=== PATIENT | female | born 1995 | race Caucasian/White ===

== ENCOUNTER 2025-04-09 00:30 | Emergency (ER) | payer OTHER, SELFPAY ==
[2025-04-09 00:34] VITALS: BP 146/100
[2025-04-09 01:33] VITALS: BP 104/65
[2025-04-09 01:36] VITALS: BMI 46.6
--- NOTE | 2025-04-09 01:58 | ED.GENMED ---
History of Present Illness
<Anjelica Forbes MD - Last Filed: 04/09/25 02:01>
General
Chief Complaint: Female [employer]/Gu symptoms
Source: patient and spouse
Time Seen by Provider: 04/09/25 01:46
History of Present Illness
History of Present Illness:
This patient is a 29-year-old female who says that about 2 days ago she got a gradual onset of intermittent 'stabbing' pain in the right lower quadrant that then started to radiate around to her back. Gradually, the pain then became constant and is
now associated with nausea and nonbloody vomiting. She denies fever, chills, diarrhea, chest pain, shortness of breath. She does note for the last 4 to 5 days that she has had dysuria urgency and frequency without associated hematuria. She
started menstruating on and states that it was about a week to week and a half earlier than expected although her periods are generally irregular given her history of PCOS. Then, tonight, the pain got particularly worse and now radiates to
the suprapubic and left lower quadrant area. There are no exacerbating relieving factors.
Past History
<Anjelica Forbes MD - Last Filed: 04/09/25 02:01>
Past History
ED Past Medical History: Other ( PCOS)
Social History
Tobacco: Non-smoker
Alcohol: None
Drug: None
Personal:
Living: with family
Phy Exam
<Anjelica Forbes MD - Last Filed: 04/09/25 02:01>
Physical Exam
Physical Exam:
GENERAL: Alert , appears uncomfortable
EYE: pupils equal and reactive
NECK: Supple, no significant adenopathy.
ENT: o/p clr, mmm.
CARDIAC: Regular rate and rhythm .
LUNGS: Clear breath sounds bilaterally, no acute respiratory distress, no wheezes/rales/rhonchi
ABDOMEN: Soft, tenderness noted in right lower quadrant, right upper quadrant, and less so in the left lower quadrant, no r/g, no cvat
NEUROLOGICAL: Alert and oriented, no focal neuro deficits
SKIN: Warm and dry, skin intact.
MUSCULOSKELETAL: No edema, well perfused.
PSYCH: Normal and appropriate interaction.
Course
<Anjelica Forbes MD - Last Filed: 04/09/25 02:01>
Orders/Labs/Results
Orders:
Orders
04/09/25 01:48
IV Insert/Care/Rem.- Treatment PRN
04/09/25 01:49
Test Result ONCE
04/09/25 01:51
Complete Blood Count/With Diff Urgent
Comprehensive Metabolic Panel Urgent
HCG, Serum Qualitative Screen Urgent
Comment: Notify provider if positive test present
Lipase Urgent
04/09/25 01:58
CT Abd/pel Without Iv Or Oral Urgent
Comment:
Reason For Exam: R sided pain
0.9% Sodium Chloride 1000 ml [Nss] 1,000 ml IV BOLUS
Ketorolac [Toradol] 15 mg IV NOW STA
04/09/25 02:21
Urinalysis Reflex To Culture Urgent
Date Specimen was Collected: 04/09/25
Time Specimen was Collected: 02:19
Urine Microscopic Reflex Cult Urgent
Urine Culture Urgent
SOC[place] Source: U
Specimen Description:
Date Specimen was Collected: 04/09/25
Time Specimen was Collected: 02:19
Abnormal Lab Results
04/09/25 04/09/25
01:51 02:21
WBC 12.6 H 10^3/uL
(4.8-10.8)
MPV 11.3 H fL
(7.4-10.4)
Absolute Neuts (auto) 7.4 H 10^3/uL
(1.4-6.5)
Absolute Lymphs (auto) 4.4 H 10^3/uL
(1.2-3.4)
Chloride 108 H mmol/L
(98-107)
Glucose 124 H mg/dl
(70-99)
ALT 52 H U/L
(0-35)
Ur Occult Blood Reflex 4+ A
(Negative)
Leukocyte Esterase Rfl 2+ A
(Negative)
Urine RBC >100 A /HPF
(0-2)
Urine Bacteria (Reflex) Few A
(Negative)
Urine Albumin (Reflex) 3+ A
(Neg - Trace)
04/09/25 01:51
04/09/25 01:51
Vital Signs
Initial and Last Documented VS:
Initial Vital Signs
Temp Pulse Resp BP Pulse Ox
98.1 F 110 26 146/100 99
04/09/25 00:34 04/09/25 00:34 04/09/25 00:34 04/09/25 00:34 04/09/25 00:34
Last Documented Vital Signs
Temp Pulse Resp BP Pulse Ox
98.1 F 80 18 122/65 99
04/09/25 00:34 04/09/25 04:00 04/09/25 04:00 04/09/25 04:00 04/09/25 04:00
<Landry Kulkarni, DO - Last Filed: 04/09/25 05:28>
Orders/Labs/Results
Orders:
Orders
04/09/25 01:48
IV Insert/Care/Rem.- Treatment PRN
04/09/25 01:49
Test Result ONCE
04/09/25 01:51
Complete Blood Count/With Diff Urgent
Comprehensive Metabolic Panel Urgent
HCG, Serum Qualitative Screen Urgent
Comment: Notify provider if positive test present
Lipase Urgent
04/09/25 01:58
CT Abd/pel Without Iv Or Oral Urgent
Comment:
Reason For Exam: R sided pain
0.9% Sodium Chloride 1000 ml [Nss] 1,000 ml IV BOLUS
Ketorolac [Toradol] 15 mg IV NOW STA
04/09/25 02:21
Urinalysis Reflex To Culture Urgent
Date Specimen was Collected: 04/09/25
Time Specimen was Collected: 02:19
Urine Microscopic Reflex Cult Urgent
Urine Culture Urgent
SOC[place] Source: U
Specimen Description:
Date Specimen was Collected: 04/09/25
Time Specimen was Collected: 02:19
Abnormal Lab Results
04/09/25 04/09/25
01:51 02:21
WBC 12.6 H 10^3/uL
(4.8-10.8)
MPV 11.3 H fL
(7.4-10.4)
Absolute Neuts (auto) 7.4 H 10^3/uL
(1.4-6.5)
Absolute Lymphs (auto) 4.4 H 10^3/uL
(1.2-3.4)
Chloride 108 H mmol/L
(98-107)
Glucose 124 H mg/dl
(70-99)
ALT 52 H U/L
(0-35)
Ur Occult Blood Reflex 4+ A
(Negative)
Leukocyte Esterase Rfl 2+ A
(Negative)
Urine RBC >100 A /HPF
(0-2)
Urine Bacteria (Reflex) Few A
(Negative)
Urine Albumin (Reflex) 3+ A
(Neg - Trace)
04/09/25 01:51
04/09/25 01:51
Vital Signs
Initial and Last Documented VS:
Initial Vital Signs
Temp Pulse Resp BP Pulse Ox
98.1 F 110 26 146/100 99
07/08/25 00:34 04/09/25 00:34 04/09/25 00:34 04/09/25 00:34 04/09/25 00:34
Last Documented Vital Signs
Temp Pulse Resp BP Pulse Ox
98.1 F 80 18 122/65 99
04/09/25 00:34 04/09/25 04:00 04/09/25 04:00 04/09/25 04:00 04/09/25 04:00
<Anjelica Forbes MD - Last Filed: 04/09/25 02:01>
*Pulse Oximetry
SaO2: 99
<Landry Kulkarni DO - Last Filed: 04/09/25 05:28>
*Pulse Oximetry
Patient hypoxic: no
*Critical Care Note
Total Time (30-74mins, 75-104mins- exclusive of procedures): Not Applicable
<Anjelica Forbes MD - Last Filed: 04/09/25 02:01>
Update Note
Update Note:
Patient presents to the Emergency Department with ___abdominal and back pain
Number and Complexity of Problems Addressed at the Encounter
� Chronic conditions affecting care:
� Acute Exacerbation and/or Progression of Chronic Illness:
� Differential Diagnosis includes: But not limited to kidney stone, appendicitis, cholecystitis, ovarian cyst rupture, etc. etc.
Amount and/or Complexity of Data to be Reviewed and Analyzed
� I performed an independent evaluation of and my interpretation is:
EKG:
CT:
Xrays:
Laboratory Studies:
Other:
� Review of other/old records reveals:
� Clinical information was obtained by an independent historian:
� Prescriptions/Medications Considered but not given:
� Further testing considered but not performed:
Risk of Complications and/or Morbidity or Mortality of Patient Management
� Social determinants of health affecting care:
� Discussion with other providers (PCP, Hospitalists, Consultants, etc):
� Escalation of care including admission/observation vs risk of discharge considered:
<Landry Kulkarni DO - Last Filed: 04/09/25 05:28>
Update Note
Update Note:
Patient presents to the Emergency Department with ___abdominal and back pain
Number and Complexity of Problems Addressed at the Encounter
� Chronic conditions affecting care:
� Acute Exacerbation and/or Progression of Chronic Illness:
� Differential Diagnosis includes: But not limited to kidney stone, appendicitis, cholecystitis, ovarian cyst rupture, etc. etc.
Amount and/or Complexity of Data to be Reviewed and Analyzed
� I performed an independent evaluation of and my interpretation is:
EKG:
CT:
Xrays:
Laboratory Studies:
Other:
� Review of other/old records reveals:
� Clinical information was obtained by an independent historian:
� Prescriptions/Medications Considered but not given:
� Further testing considered but not performed:
Risk of Complications and/or Morbidity or Mortality of Patient Management
� Social determinants of health affecting care:
� Discussion with other providers (PCP, Hospitalists, Consultants, etc):
� Escalation of care including admission/observation vs risk of discharge considered:
5:27 AM care of patient was initially transition pending CT abdomen/pelvis and urinalysis. Patient presents with right flank and right lower quadrant abdominal pain. CT negative for acute pathology. Urinalysis does show evidence of hematuria but
she is on her menstrual cycle. On my exam, patient is well-appearing and nontoxic. We discussed patient follow-up and return precautions
ED Attending Note
<Anjelica Forbes MD - Last Filed: 04/09/25 02:01>
-
Portions of this chart may have been created with voice recognition software.� Occasional wrong word or��sound alike� substitutions may have occurred due to the inherent limitations of voice recognition software.
Discharge Plan
Departure
Patient Disposition: Home (Routine Discharge)
Date of Disposition: 04/09/25
Time of Disposition: 05:28
Patient with high blood pressure during this ER visit?: No
Discharge Problem:
Abdominal pain
Instructions: Abdominal Pain
Prescriptions:
No Action
Unobtainable
0
Referrals:
Angeline Matamoros DO [Family Provider, Family Practice]
Activity Restrictions/Additional Instructions:
Please return for any worsening symptoms.
You may return at any time if you have further concerns.
Please follow up with your doctor at the first available appointment, preferably this week.
Thank you for choosing [facility].
Interventions
Interventions:
*Risk Screen - Suicide Last Done: 04/09/25 00:34
*General Assessment Last Done: 04/09/25 01:47
*Neglect/Abuse Screening Last Done: 04/09/25 00:34
*ED- Fall Risk Assessment Last Done: 04/09/25 01:47
*ED COVID-19 Vaccine History Last Done: 04/09/25 01:47
ED-Female Genitourinary Assessment Last Done: 04/09/25 01:54
Discharge Date and Time
Print Language: NEPALI
[2025-04-09 01:59] LABS: Hematocrit 40.8 % (37.0-47.0); Hemoglobin 14.0 g/dL (12.0-16.0); Mean Corp Hgb Conc. 34.3 g/dL (33.0-37.0); Mean Corpuscular Volume 85.2 fL (81.0-99.0); Nucleated Red Blood Cells % 0 %; Platelet Count 303 10^3/uL (130-400); Red Cell Dist. Width 12.5 % (11.5-14.5)
[2025-04-09 02:00] VITALS: BP 121/75
[2025-04-09] MEDS: TORADOL 15 MG IV (02:14)
[2025-04-09] MEDS: NSS 1000 IV (02:15)
[2025-04-09 02:16] LABS: HCG, Serum Qualitative Screen Negative
[2025-04-09 02:19] LABS: ALT (SGPT) 52 U/L (0-35); AST (SGOT) 27 U/L (14-36); Albumin 4.8 g/dl (3.5-5.0); Alkaline Phosphatase 111 U/L (38-126); Blood Urea Nitrogen 10 mg/dl (7-17); Calcium 9.8 mg/dl (8.4-10.2); Carbon Dioxide 27 mmol/L (22-30); Chloride 108 mmol/L (98-107); Estimated Creatinine Clearance > 125 ml/min; Glucose 124 mg/dl (70-99); Lipase 51 U/L (23-300); Potassium 4.2 mmol/L (3.5-5.1); Sodium 142 mmol/L (135-145); Total Protein 7.8 g/dl (6.3-8.2); eGFR > 60.00
[2025-04-09 02:28] LABS: Urine Character Cloudy (Clear)
[2025-04-09 03:00] VITALS: BP 132/68
[2025-04-09 03:01] LABS: Urine Red Blood Cell >100 /HPF (0-2)
[2025-04-09 04:00] VITALS: BP 122/65
[2025-04-09 05:26] VITALS: BP 131/66
== END 2025-04-09 05:40 | disposition home or self-care (01) ==
LOC: EMR 00:30
PROVIDERS: EMERGENCY PHYSICIAN Emergency Medicine; FAMILY PHYSICIAN Family Medicine
DX: R10.31 Right lower quadrant pain (principal); E28.2 Polycystic ovarian syndrome
CPT/HCPCS: 96374; 99284; 74176; 80053; 81003; 81015; 83690; 84703; 85025; 87086

== ENCOUNTER 2025-08-06 11:17 | Emergency (ER) | payer OTHER, SELFPAY ==
[2025-08-06 11:22] VITALS: BP 130/96
[2025-08-06 12:08] VITALS: BP 149/62
[2025-08-06 12:14] VITALS: BMI 46.5
--- NOTE | 2025-08-06 12:19 | ED.GENMED ---
History of Present Illness
General
Chief Complaint: Vaginal Bleeding
Source: patient
Exam Limitations: none
Time Seen by Provider: 08/06/25 12:00
Nursing documentation reviewed up to this point in time: agreed with
History of Present Illness
History of Present Illness:
Patient is a 30-year-old female ( 6 misscarriages ) with past medical history of PCOS being worked up for endometriosis followed by [facility] presents to the ER for evaluation. Patient started her period 2 days ago
however today woke up with very heavy bleeding. Pt has used 6 large pads since 6 am. She feels dizzy and lightheaded. Pt does c/o of abd cramping no relief with 400 mg Ibuprofen at 6 am.
Past History
Past History
ED Past Medical History: Other ( PCOS)
Social History
Tobacco: Non-smoker
Alcohol: None
Drug: None
Personal:
Living: with family
Phy Exam
General Physical Exam
General Presentation: no apparent distress
General age: appears stated age
General Skin: warm and dry
General Habitus: obese
General Mental: alert
General Hydration: appears well hydrated
Cardiovascular Exam
Cardiovascular Exam: regular rate/rhythm and normal peripheral pulses
Gastrointestinal Exam
Gastrointestinal Exam: non tender and soft
Genitourinary Exam Female
Exam Female: other (+ oozing of blood via cervix no clots no excessive bleeding)
Neurological Exam
Neurological Exam: alert and oriented x3
Musculoskeletal Exam
Musculoskeletal Exam: full ROM
Skin Exam
Skin Exam: normal color and warm/dry
Psychiatric Exam
Psychiatric Exam: normal mood/affect
Course
Orders/Labs/Results
Orders:
Orders
08/06/25 12:00
IV Insert/Care/Rem.- Treatment PRN
Test Result ONCE
08/06/25 12:24
Complete Blood Count/With Diff Urgent
Comprehensive Metabolic Panel Urgent
HCG, Serum Qualitative Screen Urgent
08/06/25 12:46
0.9% Sodium Chloride 1000 ml [Nss] 1,000 ml IV BOLUS
US Pelvis Only (non-obstetric) Urgent
Comment:
Reason For Exam: pelvic pain
Abnormal Lab Results
08/06/25
12:24
MCHC 32.1 L g/dL
(33.0-37.0)
MPV 11.2 H fL
(7.4-10.4)
Glucose 124 H mg/dl
(70-99)
ALT 40 H U/L
(0-35)
08/06/25 12:24
08/06/25 12:24
Vital Signs
Initial and Last Documented VS:
Initial Vital Signs
Temp Pulse Resp BP Pulse Ox
98.2 F 85 16 130/96 98
08/06/25 11:22 08/06/25 11:22 08/06/25 11:22 08/06/25 11:22 08/06/25 11:22
Last Documented Vital Signs
Temp Pulse Resp BP Pulse Ox
98.2 F 77 13 149/62 100
08/06/25 11:22 08/06/25 13:30 08/06/25 13:30 08/06/25 12:08 08/06/25 13:30
MDM/Problems Addressed
Differential Diagnosis Includes:
not limited to heavy vaginal bleeding anemia
MDM/Problems Addressed:
Patient is a 30-year-old female presenting with heavy vaginal bleeding. She presents awake alert no acute distress stable hemoglobin hCG negative pelvic exam performed shows oozing of blood but no obvious hemorrhage or clotting. Ultrasound shows a
7 mm cyst within the right anterior and superior myometrium no other abnormality. Good blood flow. Patient stable for discharge home with outpatient by [facility].
Chronic conditions affecting care:
PCOS
*Radiology
Radiology exam reviewed: radiology read reviewed
*Pulse Oximetry
SaO2: 98
Oxygen Mode of Delivery: Room air
Patient hypoxic: no
*Critical Care Note
Total Time (30-74mins, 75-104mins- exclusive of procedures): Not Applicable
ED Attending Note
-
Portions of this chart may have been created with voice recognition software.� Occasional wrong word or��sound alike� substitutions may have occurred due to the inherent limitations of voice recognition software.
Discharge Plan
Departure
Patient Disposition: Home (Routine Discharge)
Date of Disposition: 08/06/25
Time of Disposition: 15:31
Patient with high blood pressure during this ER visit?: Yes
Condition: Fair
Covid-19: Not Applicable
Discharge Problem:
Vaginal bleeding, Heavy menstrual period
Instructions: Heavy Periods (DC), BLOOD PRESSURE
Prescriptions:
No Action
Unobtainable
0
Referrals:
Angeline Matamoros, DO [Family Provider, Family Practice]
Danitza Guzman DO [Active, Gynecology]
Activity Restrictions/Additional Instructions:
Follow-up with [facility] in the next several days for reevaluation. Your hemoglobin was stable. Return if any worsening of symptoms.
Interventions
Interventions:
*Risk Screen - Suicide Last Done: 08/06/25 11:22
*General Assessment Last Done: 08/06/25 12:14
*Neglect/Abuse Screening Last Done: 08/06/25 11:22
*ED- Fall Risk Assessment Last Done: 08/06/25 12:14
*ED COVID-19 Vaccine History Last Done: 08/06/25 12:14
*ED Influenza Vaccine History Last Done: 08/06/25 12:14
ED-Female Genitourinary Assessment Last Done: 08/06/25 12:14
Discharge Date and Time
Print Language: MAURITIAN
[2025-08-06 12:31] LABS: Hematocrit 39.9 % (37.0-47.0); Hemoglobin 12.8 g/dL (12.0-16.0); Mean Corp Hgb Conc. 32.1 g/dL (33.0-37.0); Mean Corpuscular Volume 87.3 fL (81.0-99.0); Nucleated Red Blood Cells % 0 %; Platelet Count 289 10^3/uL (130-400); Red Cell Dist. Width 13.1 % (11.5-14.5)
[2025-08-06 12:47] LABS: HCG, Serum Qualitative Screen Negative
[2025-08-06] MEDS: NSS 1000 IV (12:57)
[2025-08-06 13:13] LABS: ALT (SGPT) 40 U/L (0-35); AST (SGOT) 22 U/L (14-36); Albumin 4.6 g/dl (3.5-5.0); Alkaline Phosphatase 114 U/L (38-126); Blood Urea Nitrogen 9 mg/dl (7-17); Calcium 9.0 mg/dl (8.4-10.2); Carbon Dioxide 26 mmol/L (22-30); Chloride 103 mmol/L (98-107); Estimated Creatinine Clearance > 125 ml/min; Glucose 124 mg/dl (70-99); Potassium 4.2 mmol/L (3.5-5.1); Sodium 137 mmol/L (135-145); Total Protein 7.4 g/dl (6.3-8.2); eGFR > 60.00
== END 2025-08-06 15:58 | disposition home or self-care (01) ==
LOC: EMR 11:17
PROVIDERS: Nurse Practitioner; EMERGENCY PHYSICIAN Emergency Medicine; FAMILY PHYSICIAN Family Medicine
DX: N93.9 Abnormal uterine and vaginal bleeding, unspecified (principal); N92.0 Excessive and frequent menstruation with regular cycle; N85.8 Other specified noninflammatory disorders of uterus; E66.9 Obesity, unspecified; Z68.42 Body mass index [BMI] 45.0-49.9, adult; E28.2 Polycystic ovarian syndrome
CPT/HCPCS: 99284; 96360; 76856; 80053; 84703; 85025